=== PATIENT | male | born 1945 | race Caucasian/White ===

== ENCOUNTER → 2021-11-07 01:49 | Outpatient (CLI) | payer OTHER, SELFPAY ==
--- NOTE | 2021-11-07 15:00 | DI.US_ITS ---
APPROVED REPORT EXAM: Comprehensive 2D, Doppler, and color-flow Echocardiogram Patient Location: Out-Patient Vice President Of [employer] Management: Kitty Maher RDCS (AE) Indications: Dyspnea, Heart block Other Information Study Quality: Adequate Conclusion Normal left ventricular wall thickness and chamber size. Estimated ejection fraction is 60%. Wall m otion is normal Normal right ventricular size and systolic function Both atria are normal in size Device lead noted in the right heart The aortic valve is trileaflet and mildly sclerotic with trace to mild regurgitation Normal mitral valve with trace to mild regurgitation Normal tricuspid valve with moderate regurgitation. Estimated right ventricular systolic pressure is 22 mmHg Wall motion Left Ventricle The left ventricle is normal size. The left ventricular systolic function is normal. The left ventric ular ejection fraction is within the normal range. There is normal left ventricular wall thickness. T here is normal LV segmental wall motion. There is no ventricular septal defect visualized. LVEF is 60 %. Right Ventricle The right ventricle is normal size. The right ventricular systolic function is normal. The RVSP is 22 .1mmHg. Device lead is present in the right ventricle. Atria The left atrium size is normal. The right atrium size is normal. The interatrial septum is intact wit h no evidence for an atrial septal defect. Aortic Valve The Aortic valve is mildly sclerotic. Aortic valve is trileaflet. There is no aortic valvular stenosi s. Trace to mild aortic regurgitation. Mitral Valve The mitral valve is normal in structure. No evidence of mitral valve stenosis. Trace to mild mitral r egurgitation. Tricuspid Valve The tricuspid valve is normal in structure. There is no tricuspid valve stenosis. Moderate tricuspid regurgitation. Pulmonic Valve The pulmonary valve is normal in structure. There is no pulmonic valvular stenosis. There is no pulmo venkat valvular regurgitation. Great Vessels The aortic root is normal in size. The ascending aorta is normal in size. Aortic arch is not well vis ualized. IVC is normal in size and collapses >50% with inspiration. Pericardium There is no pericardial effusion. 2D Dimensions IVSD d PLAX 0.95 cm M: 0.6-1.2 LV Vol A2C d MOD 54.5 mL LVPW d PLAX 0.95 cm M: 0.6 - 1.2 LV Vol A4C d MOD 63.6 mL LVID d PLAX 3.81 cm M: 4.2 - 5.8 LV EF A4C MOD 60.9 % LVDs 2.50 cm M: 2.5 - 4.0 LV EF A2C MOD 60.4 % Ao Root d 3.11 cm M: 3.1 - 3.7 LV EF Biplane MOD 59.7 % RA Area A4C 7.85 cm2 SV 35.36 mL RA Vol/ BSA A4C s A-L 9.3 mL/m2 SV Index 23.77 mL/m2 Ao Asc Diam d 3.43 cm M: 2.6 - 3.4 LV EF Teichholz 62.6 % LVEF (Zaragoza's) 59.66 % M: 52 - 72 LV Volume 49.55 mL M: 62 - 150 LV Volume Index 33.47 mL/m2 M: 34 - 74 LV Vol Biplane MOD 59.3 mL FS 33.20 % M-Mode TAPSE 2.19 cm (M/F) >1.7 LV Diastology MV E' medial 0.065 (>0.07 m/s) E/A Ratio 0.7 LV E/e MED 9.75 (<14) MV E Vmax 0.63 (0.4-1.3 m/s) MV E' lateral 0.060 (>0.1 m/s) MV A Vmax 0.85 (0.4-1.3 m/s) LV E/e LAT 10.55 (<14) MV E/A Ratio 0.73 MV E/E' medial 9.76 MV E/E' lateral 10.56 Aortic Valve LVOT Area 2.30 cm2 AoV Area Vmax 2.02 cm2 LVOT Vmax 0.96 m/s AoV Area/ BSA (Vmax) 1.36 cm2/m2 LVOT Mean Phu. 0.64 m/s RENETTA Mean Phu. 2.02 cm2 LVOT Peak Grad 3.7 mmHg RENETTA Mean Phu. Index 1.36 cm2/m2 LVOT Mean Grad 1.9 mmHg LVOT VTI 0.203 m LVOT Diam s 1.70 cm AoV Vmax 1.09 m/s Velocity Ratio 0.88 AoV Mean Phu. 0.73 m/s AoV Peak Grad 4.8 mmHg LVOT SV 46.67 mL AoV Mean Grad 2.4 mmHg AoV VTI 0.229 m AoV Area VTI 2.04 cm2 AoV Area/ BSA (VTI) 1.37 cm/m2 Mitral Valve MV DT 316 (160-240 msec) MV PHT 92 msec MV Area PHT 2.40 cm2 MV VTI 0.354 m MV Area VTI 1.32 (4.0-6.0 cm2) Pulmonary Valve PV Vmax 0.68 (0.5-1.5 m/s) RVOT Peak Gr. 0.77 mmHg PV Peak Grad 1.9 mmHg RVOT Mean Gr. 0.35 mmHg PV Mean Grad 1.1 mmHg RVOT VTI 0.076 m PV VTI 0.126 m RVOT Vmax 0.44 m/s Tricuspid Valve TR Peak Grad 19.1 mmHg TR Vmax 2.19 m/s RA Pressure 3.00 mmHg RVSP (TR) 22.1 mmHg
== END ==
PROVIDERS: Visit Provider Nurse Practitioner
DX: R06.09 Other forms of dyspnea (principal); I44.30 Unspecified atrioventricular block
CPT/HCPCS: 93306

== ENCOUNTER 2024-05-05 12:52 | Outpatient (CLI) | payer OTHER, SELFPAY ==
--- NOTE | 2024-05-05 12:45 | RT.EKG_ITS ---
APPROVED REPORT Exam: Resting ECG Reason for Exam: pacemaker Patient Location: O HR:110 bpm ECG Measurements Heart Rate 110 AXIS [place] 106 P 77 QRSd 131 QRS -91 QT 345 T 48 QTc 467 Conclusion Sinus tachycardia...rate> 99 RBBB and LAFB...QRSd >120mS, axis(-40,240) Borderline ST elevation, lateral leads...ST >0.06mV, I aVL V5 V6
== END 2024-05-05 12:53 | disposition home or self-care (01) ==
LOC: DI.CARD 12:53
PROVIDERS: Visit Provider Registered Nurse
DX: Z95.0 Presence of cardiac pacemaker (principal)
CPT/HCPCS: 93010